=== PATIENT | female | born 1985 | race Caucasian/White ===

== ENCOUNTER 2016-08-31 14:01 | Inpatient (IN) | payer MEDICAID ==
[~2016-08-31] VITALS: Ht 152.4 cm; Wt 55.8 kg
[2016-08-31] MEDS ORDERED: CEFTRIAXONE 1 GM/50 ML (PMX) 50 ML IVPB STA (15:36)
[2016-08-31] MEDS ORDERED: SOD CHLORIDE 0.9% 500 ML IV STA (15:36)
[2016-08-31] MEDS ORDERED: morphine 4 MG/ML VIAL IV STA (15:36)
[2016-08-31] MEDS ORDERED: ONDANSETRON 4 MG INJ IV STA (15:36)
[2016-08-31 15:58] LABS: ADD SCAN DIFF NO
[2016-08-31 16:02] LABS: BASOPHILS % 0.1 % (0.0-2.0); EOSINOPHILS % 0.3 % (0.0-7.0); HEMATOCRIT 35.5 % (37.0-47.0); HEMOGLOBIN 11.6 g/dl (12.0-16.0); LYMPHOCYTES # 0.8 10^3/ul (0.8-2.9); LYMPHOCYTES % 10.5 % (15.0-51.0); MEAN CORPUSCULAR HEMOGLOBIN 27.7 pg (29.0-33.0); MEAN CORPUSCULAR HGB CONC 32.7 g/dl (32.0-37.0); MEAN CORPUSCULAR VOLUME 84.7 fl (82.0-101.0); MEAN PLATELET VOLUME 10.2 fl (7.4-10.4); MONOCYTE # 0.8 10^3/ul (0.3-0.9); MONOCYTES % 9.4 % (0.0-11.0); NEUTROPHIL # 6.4 10^3/ul (1.6-7.5); NEUTROPHILS % 79.3 % (39.0-77.0); PLATELET COUNT 194 10^3/UL (140-415); RED BLOOD COUNT 4.19 10^6/ul (4.20-5.40); RED CELL DISTRIBUTION WIDTH 13.8 % (11.5-14.5)
[2016-08-31 16:10] LABS: ADD UMIC YES; URINE BILIRUBIN (Dip) NEGATIVE (NEGATIVE); URINE BLOOD (Dip) 1+ (NEGATIVE); URINE COLOR LT. YELLOW (YELLOW); URINE GLUCOSE (Dip) NEGATIVE (NEGATIVE); URINE KETONES (Dip) NEGATIVE (NEGATIVE); URINE LEUKOCYTE ESTERASE (Dip) 1+ (NEGATIVE); URINE NITRITE (Dip) POSITIVE (NEGATIVE); URINE TOTAL PROTEIN (Dip) TRACE (NEGATIVE); URINE UROBILINOGEN (Dip) 1.0 E.U./dL (0.1-1.0)
[2016-08-31 16:20] LABS: ALBUMIN 4.3 g/dl (3.3-4.9); POTASSIUM 4.1 mmol/L (3.5-5.1)
[2016-08-31 16:22] LABS: ALBUMIN/GLOBULIN RATIO 1.13; BILIRUBIN,INDIRECT 0.4 mg/dl (0-1.1); BILIRUBIN,TOTAL 0.4 mg/dl (0.2-1.3); CREATININE 0.56 mg/dl (0.44-1.00); TOTAL PROTEIN 8.1 g/dl (6.1-8.1)
[2016-08-31 16:23] LABS: CALCIUM 9.1 mg/dl (8.4-10.2)
[2016-08-31 16:32] LABS: BACTERIA,URINE MANY; SQUAMOUS EPITHELIAL CELL,UR FEW
[2016-08-31] MEDS ORDERED: IOHEXOL 300MG/ML 150 ML BTL ONE (16:37)
[2016-08-31] MEDS ORDERED: SOD CHLORIDE 0.9% 100 ML ONE (16:37)
--- NOTE | 2016-08-31 17:13 | RADRPT ---
PROCEDURE: CT Abdomen and Pelvis with contrast. CLINICAL INDICATION: Abdominal pain TECHNIQUE: CT scan of the abdomen and pelvis with contrast was performed . The patient was scanne d following the uncomplicated intravenous administration of 100 cc of Omnipaque 300. Coronal and sa gittal reformatted images were obtained from the axial source images. Images were reviewed on a high -resolution PACS workstation. images. The calculated radiation dose measures 309.69 mGy centimeters. The CTDI measures 6.01 mGy. One or more of the following dose reduction techniques were used: - Automated exposure control. - Adjustment of the mA and/or kV according to patient size . - Use of iterative reconstruction technique. Images were reviewed on a high-resolution PACS workstation COMPARISON: None. FINDINGS: CT abdomen: The lung bases are clear. The heart size is normal, without pericardial thickening or effusion. Th e liver demonstrates decreased density without focal mass or intrahepatic biliary dilatation. A sma ll splenic cyst is seen at the anterior aspect, benign in appearance. The spleen is otherwise normal in size and homogeneous in density. The stomach is partially collapsed, but is grossly unremarkabl e. The pancreas as visualized is normal. The gallbladder and biliary tree are unremarkable and the re is no evidence for biliary dilatation. The adrenal glands are symmetric and normal. There is an asymmetric nephrogram with inhomogeneous enhancement at the left kidney and a focal area of nonenha ncement at the lower pole of the kidney suspicious for pyelonephritis. There is also enhancement of the left ureter as well as perinephric stranding. There is a 2.6 mm right lower pole renal calculu s. The aorta is of normal caliber. There is no retroperitoneal lymphadenopathy. The viet hepatis re gion is clear. The bowel and mesentery, as visualized, are equally unremarkable. There is a calcifi ed granuloma in the right perinephric region. CT pelvis: The small bowel loops situated within the pelvis are unremarkable. The pelvic organs are normal. T he pelvic sidewalls and inguinal regions are clear. The sigmoid colon and rectum are not thickened or dilated. The appendix is visualized, there are no secondary findings acute appendicitis.. The b ladder is mildly decompressed. The surrounding osseous structures are tact. No osteolytic or osteoblastic lesion is detected. IMPRESSION: 1. The findings are most consistent with a left of pyelonephritis a small focal area of nonenhanceme nt at the left lower pole of the kidney and could represent a developing collection. Short-term foll ow-up imaging is recommended during treatment to exclude abscess formation. 2. Suggestion of fatty liver. 3. 2.6 mm right lower pole renal calculus. No evidence for left nephroureterolithiasis, although ev aluation is slightly limited without IV. 4. No evidence for small bowel obstruction. RPTAT: UU .Hector Black MD, MD Date Time Electronically viewed and signed by .Hector Black MD, MD on 08/31/2016 17:13 .d/
[2016-08-31] MEDS ORDERED: SOD CHLORIDE 0.9% 1,000 ML IV SCH (17:45)
--- NOTE | 2016-08-31 17:49 | ERD ---
ER Documentation Chief Complaint Date/Time DATE: 08/31/16 TIME: 17:46 Chief Complaint ABD PAIN X 4 DAYS HPI This is a 30-year-old female complains of 3 days of dysuria and developed a fever yesterday at home with chills and she is complaining of left mid abdominal pain. Is a mild dull headache nausea no vomiting or diarrhea no back pain no vaginal discharge or bleeding. Pain is described as constant dull nothing makes it worse or better no radiation ROS All systems reviewed and are negative except as per history of present illness. Medications Home Meds No Active Prescriptions or Reported Meds Allergies Allergies: Coded Allergies: No Known Drug Allergies (Verified Allergy, Unknown, 06/13/14) PMhx/Soc Medical and Surgical Hx: pt denies Medical Hx, pt denies Surgical Hx History of Surgery: No Anesthesia Reaction: No Hx Neurological Disorder: No Hx Respiratory Disorders: No Hx Cardiac Disorders: No Hx Psychiatric Problems: No Hx Miscellaneous Medical Probl: No Hx Alcohol Use: No Hx Substance Use: No Hx Tobacco Use: No FmHx Family History: No coronary disease Physical Exam Vitals Vital Signs Date Time Temp Pulse Resp B/P Pulse Ox O2 Delivery O2 Flow Rate FiO2 08/31/16 14:05 102.4 120 18 116/60 99 Physical Exam Const: Well-developed, well-nourished Head: Atraumatic, normocephalic Eyes: Normal Conjunctiva, PERRLA, EOMI, normal sclera, no nystagmus ENT: Normal External Ears, Nose and Mouth, moist mucus membranes. Neck: Full range of motion. No meningismus, no lymphadenopathy. Resp: Clear to auscultation bilaterally, no wheezing, rhonchi, rales Cardio: Tachycardia m, no murmurs, S1 S2 present Abd: Soft, mild abdominal left-sided tenderness over the kidney, non distended. Normal bowel sounds, no guarding or rebound, no pulsitile abdominal masses or bruits Skin: No petechiae or rashes, no ecchymosis , no maculopapular rash Back: No midline or flank tenderness Ext: No cyanosis, or edema, FROM x 4, normal inspection, neurovascularly intact x 4 Neur: Awake and alert, STR 5/5 x 4, sensation intact x 4, no focal findings, cerebellum intact Psych: Normal Mood and Affect Result Diagram: 08/31/16 1545 08/31/16 1545 Results 24 hrs Laboratory Tests Test 08/31/16 15:45 08/31/16 15:55 White Blood Count 8.010^3/ul Red Blood Count 4.1910^6/ul Hemoglobin 11.6g/dl Hematocrit 35.5% Mean Corpuscular Volume 84.7fl Mean Corpuscular Hemoglobin 27.7pg Mean Corpuscular Hemoglobin Concent 32.7g/dl Red Cell Distribution Width 13.8% Platelet Count 64009^3/UL Mean Platelet Volume 10.2fl Neutrophils % 79.3% Lymphocytes % 10.5% Monocytes % 9.4% Eosinophils % 0.3% Basophils % 0.1% Nucleated Red Blood Cells % 0.0/100WBC Neutrophils # 6.410^3/ul Lymphocytes # 0.810^3/ul Monocytes # 0.810^3/ul Eosinophils # 0.010^3/ul Basophils # 0.010^3/ul Nucleated Red Blood Cells # 0.010^3/ul Sodium Level 137mmol/L Potassium Level 4.1mmol/L Chloride Level 100mmol/L Carbon Dioxide Level 23mmol/L Anion Gap 18 Blood Urea Nitrogen 11mg/dl Creatinine 0.56mg/dl Glucose Level 111mg/dl Calcium Level 9.1mg/dl Total Bilirubin 0.4mg/dl Direct Bilirubin 0.00mg/dl Indirect Bilirubin 0.4mg/dl Aspartate Amino Transf (AST/SGOT) 22IU/L Alanine Aminotransferase (ALT/SGPT) 24IU/L Alkaline Phosphatase 80IU/L Total Protein 8.1g/dl Albumin 4.3g/dl Globulin 3.80g/dl Albumin/Globulin Ratio 1.13 Urine Color LT. YELLOW Urine Clarity CLOUDY Urine pH 8.0 Urine Specific [place] 1.015 Urine Ketones NEGATIVE Urine Nitrite POSITIVE Urine Bilirubin NEGATIVE Urine Urobilinogen 1.0 E.U./dL Urine Leukocyte Esterase 1+ Urine Microscopic RBC 5-10/HPF Urine Microscopic WBC >50/HPF Urine Squamous Epithelial Cells FEW Urine Bacteria MANY Urine Hemoglobin 1+ Urine Glucose NEGATIVE% Urine Total Protein TRACE Current Medications Medications (Trade) Dose Ordered Sig/Akiko Route PRN Reason Start Time Stop Time Status Last Admin Dose Admin Sodium Chloride (NS) 500 ml @ 500 mls/hr Q1H STAT IV 08/31/16 15:36 08/31/16 16:35 DC 08/31/16 15:50 Morphine Sulfate (morphine) 4 mg ONCE STAT IV 08/31/16 15:36 08/31/16 15:37 DC 08/31/16 15:54 Ondansetron HCl 4 mg 4 mg ONCE STAT IV 08/31/16 15:36 08/31/16 15:37 DC 08/31/16 15:53 Ceftriaxone Sodium (Rocephin) 50 ml @ 100 mls/hr ONCE STAT IVPB 08/31/16 15:36 08/31/16 16:05 DC 08/31/16 15:52 IV Flush 10 ml 10 ml STK-MED ONCE .ROUTE 08/31/16 16:37 08/31/16 16:38 DC 08/31/16 16:56 Sodium Chloride (NS) 100 ml @ ud STK-MED ONCE .ROUTE 08/31/16 16:37 08/31/16 16:38 DC 08/31/16 16:56 Iohexol (Omnipaque 300mg/ ml) 150 ml STK-MED ONCE .ROUTE 08/31/16 16:37 08/31/16 16:38 DC 08/31/16 16:56 Procedures/MDM PROCEDURE: CT Abdomen and Pelvis with contrast. CLINICAL INDICATION: Abdominal pain TECHNIQUE: CT scan of the abdomen and pelvis with contrast was performed . The patient was scanned following the uncomplicated intravenous administration of 100 cc of Omnipaque 300. Coronal and sagittal reformatted images were obtained from the axial source images. Images were reviewed on a high- resolution PACS workstation. images. The calculated radiation dose measures 309.69 mGy centimeters. The CTDI measures 6.01 mGy. One or more of the following dose reduction techniques were used: - Automated exposure control. - Adjustment of the mA and/or kV according to patient size . - Use of iterative reconstruction technique. Images were reviewed on a high-resolution PACS workstation COMPARISON: None. FINDINGS: CT abdomen: The lung bases are clear. The heart size is normal, without pericardial thickening or effusion. The liver demonstrates decreased density without focal mass or intrahepatic biliary dilatation. A small splenic cyst is seen at the anterior aspect, benign in appearance. The spleen is otherwise normal in size and homogeneous in density. The stomach is partially collapsed, but is grossly unremarkable. The pancreas as visualized is normal. The gallbladder and biliary tree are unremarkable and there is no evidence for biliary dilatation. The adrenal glands are symmetric and normal. There is an asymmetric nephrogram with inhomogeneous enhancement at the left kidney and a focal area of nonenhancement at the lower pole of the kidney suspicious for pyelonephritis. There is also enhancement of the left ureter as well as perinephric stranding. There is a 2.6 mm right lower pole renal calculus. The aorta is of normal caliber. There is no retroperitoneal lymphadenopathy. The viet hepatis region is clear. The bowel and mesentery, as visualized, are equally unremarkable. There is a calcified granuloma in the right perinephric region. CT pelvis: The small bowel loops situated within the pelvis are unremarkable. The pelvic organs are normal. The pelvic sidewalls and inguinal regions are clear. The sigmoid colon and rectum are not thickened or dilated. The appendix is visualized, there are no secondary findings acute appendicitis.. The bladder is mildly decompressed. The surrounding osseous structures are tact. No osteolytic or osteoblastic lesion is detected. IMPRESSION: 1. The findings are most consistent with a left of pyelonephritis a small focal area of nonenhancement at the left lower pole of the kidney and could represent a developing collection. Short-term follow-up imaging is recommended during treatment to exclude abscess formation. 2. Suggestion of fatty liver. 3. 2.6 mm right lower pole renal calculus. No evidence for left nephroureterolithiasis, although evaluation is slightly limited without IV. 4. No evidence for small bowel obstruction. RPTAT: UU .Hector Black MD, MD Date Time Electronically viewed and signed by .Hector Black MD, MD on 08/31/2016 17:13 .d/ CC: SIMÓN CRUZ DO Patient has pyelonephritis with possible early abscess formation. There is a 102.4 fever here and will admit to the hospital for IV antibiotics and probable further monitoring with renal ultrasound or CT scan. She is clinically well appearing and not septic Should IV fluids, Rocephin IV blood and urine cultures Departure Diagnosis: Primary Impression: Pyelonephritis Condition: Stable SIMÓN CRUZ DO Aug 31, 2016 17:49
[2016-08-31] MEDS ORDERED: ACETAMINOPHEN 325 MG TAB PO PRN (18:00)
[2016-08-31] MEDS ORDERED: ONDANSETRON 4 MG INJ IV PRN (18:00)
[2016-08-31 22:46] VITALS: PULSE 93; TEMP 98.4
--- NOTE | 2016-09-01 01:58 | HP ---
Date/Time of Note Date/Time of Note DATE: 09/01/16 TIME: 01:48 Assessment/Plan VTE Prophylaxis VTE Prophylaxis Intervention: SCD's Assessment/Plan Assessment/Plan 1. Sepsis as evidenced by fever and tachycardia 2/2 pyelonephritis - Abx - IVF - f/u culture results - pain mgmt 2. pyelonephritis - see above 3. Normocytic anemia - will w/u for iron deficiency 4. History of Gastritis - PPI HPI/ROS Admit Date/Time Admit Date/Time Aug 31, 2016 at 17:46 Hx of Present Illness This is a 30 yo female with hx of gastritis and retained placenta s/p suction and curettage in 2012 who presented to ER with 3 days history of fever, dysuria and left flank pain. Reported nausea, but no vomiting. no other complaints. In ER, pt was found to be febrile with a temp of 102, HR 120 and UA consistent with UTI. WBC is 8, hbb 11.6, otherwise rest of basic labs withinacceptable range. CT abd/pelvis showed The findings are most consistent with a left of pyelonephritis a small focal area of nonenhancement at the left lower pole of the kidney and could represent a developing collection. Short-term follow-up imaging is recommended during treatment to exclude abscess formation. 2.6 mm right lower pole renal calculus. No evidence for left nephroureterolithiasis. Suggestion of fatty liver. . PMH/Family/Social Past Medical History Medical History: no pertinent history Social History Alcohol Use: none Smoking Status: Never smoker Drug Use: none Exam/Review of Systems Vital Signs Vitals Vital Signs Date Time Temp Pulse Resp B/P Pulse Ox O2 Delivery O2 Flow Rate FiO2 08/31/16 22:46 98.4 93 16 114/65 99 Room Air Intake and Output 08/31/16 08/31/16 09/01/16 15:00 23:00 07:00 Intake Total 550 ml Balance 550 ml Exam Constitutional: alert, oriented, well developed Head: atraumatic, normocephalic Eyes: EOMI, PERRL Respiratory: clear to auscultation, normal air movement Cardiovascular: other (tachycardic with regular rhythm) Gastrointestinal: other (left flank tenderness. no abd ridgity or rebound tenderness), soft, tender Extremities: normal pulses Labs Result Diagram: 08/31/16 1545 08/31/16 1545 Medications Medications Current Medications Sodium Chloride (NS) 1,000 ml @ 80 mls/hr [id number] IV Last administered on 08/31t 18:37; Admin Dose 80 MLS/HR; Start 08/31/16 at 17:45; Stop 09/01/16 at 06: 14 HARRY LAWRENCE MD Sep 01, 2016 01:58
[2016-09-01] MEDS ORDERED: NACL 0.9% 3 ML SYG IV SCH (02:00)
[2016-09-01] MEDS ORDERED: ALBUTEROL/IPRATROPIUM (NEB) 3 ML AMP HHN PRN (02:00)
[2016-09-01] MEDS ORDERED: ONDANSETRON 4 MG INJ IV PRN (02:00)
[2016-09-01] MEDS ORDERED: morphine 2 MG INJ IV PRN (02:00)
[2016-09-01] MEDS: SOD CHLORIDE 0.9% 1,000 ML IV SCH ×3 (02:23→21:44)
[2016-09-01] MEDS: CEFEPIME 1GM/50 ML (PMX) 50 ML IVPB SCH ×3 (02:23→21:28)
[2016-09-01 02:30] VITALS: BP 112/61; RESP 18
[2016-09-01 05:35] LABS: ADD SCAN DIFF NO
[2016-09-01 05:55] LABS: ALBUMIN 3.5 g/dl (3.3-4.9)
[2016-09-01 05:56] LABS: POTASSIUM 3.8 mmol/L (3.5-5.1)
[2016-09-01 05:58] LABS: ALBUMIN/GLOBULIN RATIO 1.02; BASOPHILS % 0.1 % (0.0-2.0); BILIRUBIN,INDIRECT 0.5 mg/dl (0-1.1); BILIRUBIN,TOTAL 0.5 mg/dl (0.2-1.3); CREATININE 0.56 mg/dl (0.44-1.00); EOSINOPHILS % 0.5 % (0.0-7.0); HEMATOCRIT 31.5 % (37.0-47.0); HEMOGLOBIN 10.2 g/dl (12.0-16.0); MEAN CORPUSCULAR HEMOGLOBIN 27.5 pg (29.0-33.0); MEAN CORPUSCULAR HGB CONC 32.4 g/dl (32.0-37.0); MEAN CORPUSCULAR VOLUME 84.9 fl (82.0-101.0); MEAN PLATELET VOLUME 10.5 fl (7.4-10.4); MONOCYTE # 1.2 10^3/ul (0.3-0.9); MONOCYTES % 14.5 % (0.0-11.0); NEUTROPHIL # 6.1 10^3/ul (1.6-7.5); NEUTROPHILS % 72.7 % (39.0-77.0); PLATELET COUNT 195 10^3/UL (140-415); RED BLOOD COUNT 3.71 10^6/ul (4.20-5.40); RED CELL DISTRIBUTION WIDTH 13.8 % (11.5-14.5); TOTAL PROTEIN 6.9 g/dl (6.1-8.1); WHITE BLOOD COUNT 8.4 10^3/ul (4.8-10.8)
[2016-09-01 05:59] LABS: CALCIUM 8.4 mg/dl (8.4-10.2); MAGNESIUM 1.9 mg/dl (1.7-2.5); PHOSPHORUS 3.5 mg/dl (2.5-4.9)
[2016-09-01 06:16] LABS: TOTAL IRON BINDING CAPACITY 287 ug/dl (241-421)
[2016-09-01 06:55] LABS: IRON < 10 ug/dl (35-150)
[2016-09-01 07:14] LABS: FERRITIN 63.6 ng/ml (6.2-137.0)
[2016-09-01] MEDS: ACETAMINOPHEN 325 MG TAB PO PRN ×2 (08:10→16:13)
[2016-09-01 08:44] VITALS: BP 106/55; RESP 17
--- NOTE | 2016-09-01 10:58 | PN ---
Date/Time of Note Date/Time of Note DATE: 09/01/16 TIME: 10:56 Assessment/Plan VTE Prophylaxis VTE Prophylaxis Intervention: other Lines/Catheters IV Catheter Type (from Nrs): Peripheral IV Assessment/Plan Problems: (1) Iron deficiency anemia Status: Chronic Comment: This is most likely on the basis of menstrual loss as well as pregnancies. Go ahead and give her IV iron while she is here. Will be done for being expeditious. At discharge she can be on oral iron therapy Qualifiers: Iron deficiency anemia type: unspecified iron deficiency Qualified Code: D50.9 - Iron deficiency anemia, unspecified iron deficiency anemia type (2) Pyelonephritis Status: Acute Comment: Culture is still pending at this time. She is on antibiotics and improving. Please note I do not find evidence of the urine test in the chart I have gone ahead and ordered Subjective 24 Hr Interval Summary Free Text/Dictation Patient reports with IV fluids and antibiotics she is already feeling a little bit better. Denies any specific nausea or vomiting. Constitutional: improved Respiratory: no complaints Cardiovascular: no complaints Gastrointestinal: no complaints Genitourinary: dysuria Exam/Review of Systems Vital Signs Vitals Vital Signs Date Time Temp Pulse Resp B/P Pulse Ox O2 Delivery O2 Flow Rate FiO2 09/01/16 09:51 98.7 09/01/16 08:44 88 17 106/55 99 08/31/16 22:46 Room Air Intake and Output 08/31/16 08/31/16 09/01/16 14:59 22:59 06:59 Intake Total 550 ml 200 ml Balance 550 ml 200 ml Exam Constitutional: alert Neck: non-tender, supple Respiratory: clear to auscultation Cardiovascular: nl pulses, regular rate and rhythm Gastrointestinal: nl liver, spleen, other (Left CVA tenderness), soft Results Result Diagram: 09/01/16 0430 09/01/16 0430 Results 24 hrs Laboratory Tests Test 08/31/16 15:45 08/31/16 15:55 09/01/16 04:30 White Blood Count 8.0 8.4 Red Blood Count 4.19 L 3.71 L Hemoglobin 11.6 L 10.2 L Hematocrit 35.5 L 31.5 L Mean Corpuscular Volume 84.7 84.9 Mean Corpuscular Hemoglobin 27.7 L 27.5 L Mean Corpuscular Hemoglobin Concent 32.7 32.4 Red Cell Distribution Width 13.8 13.8 Platelet Count 194 195 Mean Platelet Volume 10.2 10.5 H Neutrophils % 79.3 H 72.7 Lymphocytes % 10.5 L 12.0 L Monocytes % 9.4 14.5 H Eosinophils % 0.3 0.5 Basophils % 0.1 0.1 Nucleated Red Blood Cells % 0.0 0.0 Neutrophils # 6.4 6.1 Lymphocytes # 0.8 1.0 Monocytes # 0.8 1.2 H Eosinophils # 0.0 0.0 Basophils # 0.0 0.0 Nucleated Red Blood Cells # 0.0 0.0 Sodium Level 137 139 Potassium Level 4.1 3.8 Chloride Level 100 104 Carbon Dioxide Level 23 23 Anion Gap 18 H 16 Blood Urea Nitrogen 11 8 Creatinine 0.56 0.56 Glucose Level 111 111 Calcium Level 9.1 8.4 Total Bilirubin 0.4 0.5 Direct Bilirubin 0.00 0.00 Indirect Bilirubin 0.4 0.5 Aspartate Amino Transf (AST/SGOT) 22 26 Alanine Aminotransferase (ALT/SGPT) 24 31 Alkaline Phosphatase 80 72 Total Protein 8.1 6.9 # Albumin 4.3 3.5 Globulin 3.80 H 3.40 H Albumin/Globulin Ratio 1.13 1.02 Urine Color LT. YELLOW Urine Clarity CLOUDY Urine pH 8.0 Urine Specific [place] 1.015 Urine Ketones NEGATIVE Urine Nitrite POSITIVE H Urine Bilirubin NEGATIVE Urine Urobilinogen 1.0 E.U./dL Urine Leukocyte Esterase 1+ H Urine Microscopic RBC 5-10 Urine Microscopic WBC >50 Urine Squamous Epithelial Cells FEW Urine Bacteria MANY Urine Hemoglobin 1+ H Urine Glucose NEGATIVE Urine Total Protein TRACE Phosphorus Level 3.5 Magnesium Level 1.9 Iron Level < 10 L Total Iron Binding Capacity 287 Percent Iron Saturation Ferritin 63.6 Medications Medications Current Medications Sodium Chloride (NS) 1,000 ml @ 100 mls/hr Q10H IV Last administered on t 02:23; Admin Dose 100 MLS/HR; Start 09/01/16 at 01:44; Stop 09/01/16 at 23: 00 Ondansetron HCl (Zofran Inj) 4 mg Q6H PRN IV NAUSEA AND/OR VOMITING; Start at 02:00 Acetaminophen (Tylenol Tab) 650 mg Q6H PRN PO PAIN LEVEL 1-3 OR FEVER Last administered on 09/01/16 08:10; Admin Dose 650 MG; Start 09/01/16 at 02:00 Morphine Sulfate 2 mg 2 mg Q4H PRN IV SEVERE PAIN LEVEL 7-10 Last administered on 09/01/16 03:47; Admin Dose 2 MG; Start 09/01/16 at 02:00 Cefepime HCl 50 ml @ 100 mls/hr Q12 IVPB Last administered on 09/01/16 08:09 ; Admin Dose 100 MLS/HR; Start 09/01/16 at 02:00 Ferric Sodium Gluconate Complex/ Sodium Chloride (Ferrlecit/NS) 110 ml @ 100 mls/hr Q24H IVPB ; Start 09/01/16 at 11:00; Stop 09/03/16 at 12:05 VLADIMIR MCKEON MD Sep 01, 2016 10:58
[2016-09-01] MEDS: SOD FERRIC GLUC COMPLX 125 MG in SOD CHLORIDE 0.9% 100 ML IVPB SCH (12:29)
[2016-09-01 20:55] VITALS: BP 106/65; RESP 20
[2016-09-02] MEDS: ACETAMINOPHEN 325 MG TAB PO PRN ×2 (01:51→16:08)
[2016-09-02 05:27] LABS: ADD SCAN DIFF NO
[2016-09-02 05:38] LABS: BASOPHILS % 0.3 % (0.0-2.0); EOSINOPHILS # 0.1 10^3/ul (0.0-0.5); EOSINOPHILS % 0.7 % (0.0-7.0); HEMATOCRIT 31.1 % (37.0-47.0); HEMOGLOBIN 10.1 g/dl (12.0-16.0); LYMPHOCYTES # 1.2 10^3/ul (0.8-2.9); LYMPHOCYTES % 15.2 % (15.0-51.0); MEAN CORPUSCULAR HEMOGLOBIN 27.7 pg (29.0-33.0); MEAN CORPUSCULAR HGB CONC 32.5 g/dl (32.0-37.0); MEAN CORPUSCULAR VOLUME 85.2 fl (82.0-101.0); MEAN PLATELET VOLUME 10.4 fl (7.4-10.4); MONOCYTE # 0.9 10^3/ul (0.3-0.9); MONOCYTES % 12.2 % (0.0-11.0); NEUTROPHIL # 5.4 10^3/ul (1.6-7.5); NEUTROPHILS % 71.3 % (39.0-77.0); PLATELET COUNT 206 10^3/UL (140-415); RED BLOOD COUNT 3.65 10^6/ul (4.20-5.40); RED CELL DISTRIBUTION WIDTH 13.6 % (11.5-14.5); WHITE BLOOD COUNT 7.6 10^3/ul (4.8-10.8)
[2016-09-02 05:50] LABS: POTASSIUM 4.1 mmol/L (3.5-5.1)
[2016-09-02 05:52] LABS: CREATININE 0.59 mg/dl (0.44-1.00)
[2016-09-02 05:53] LABS: CALCIUM 8.6 mg/dl (8.4-10.2); PHOSPHORUS 3.5 mg/dl (2.5-4.9)
[2016-09-02 08:05] VITALS: BP 94/55; RESP 16
[2016-09-02] MEDS: CEFEPIME 1GM/50 ML (PMX) 50 ML IVPB SCH ×2 (08:42→20:48)
[2016-09-02] MEDS: SOD FERRIC GLUC COMPLX 125 MG in SOD CHLORIDE 0.9% 100 ML IVPB SCH (10:15)
--- NOTE | 2016-09-02 19:11 | PN ---
DATE: 09/02/2016 SUBJECTIVE: Chart reviewed. Yesterday urine test was done which is reportedly negative. The patient remains on IV antibiotics. PHYSICAL EXAMINATION: VITAL SIGNS: Blood pressure 94/55, pulse 72, respirations 16, temperature 97.9. Currently saturati ng 100%. HEENT: Pupils are equal and reactive to light. NECK: Supple, no JVD noted, no cervical adenopathy, no carotid bruits heard. LUNGS: Fair breath sounds bilaterally. CARDIOVASCULAR: S1, S2 normal. ABDOMEN: Soft, nontender. No organomegaly or masses noted. EXTREMITIES: No clubbing, cyanosis, or edema noted. NEUROLOGICAL: Awake and alert. LABORATORY DATA: Sodium 139, potassium 4.1, chloride 107, CO2 of 25, BUN 10, creatinine 0.59, gluco se 113. WBC 7.6, hemoglobin 10.1, hematocrit 31.1, platelets 206. Blood cultures negative. Urine culture shows E. coli. IMPRESSION: 1. Acute pyelonephritis. 2. Iron deficiency anemia. RECOMMENDATIONS: 1. Continue current antibiotics. 2. The patient likely may be discharged to home tomorrow with oral antibiotics. Dictated By: MARIKA CAGLE MD, MA/ODETTE Conf#: [id number] DID#: [id number]
[2016-09-02 19:45] VITALS: BP 110/67; RESP 20
[2016-09-03] MEDS: ACETAMINOPHEN 325 MG TAB PO PRN (07:25)
[2016-09-03 07:59] VITALS: BP 107/65; RESP 18
[2016-09-03] MEDS: CEFEPIME 1GM/50 ML (PMX) 50 ML IVPB SCH (09:36)
[2016-09-03] MEDS: SOD FERRIC GLUC COMPLX 125 MG in SOD CHLORIDE 0.9% 100 ML IVPB SCH (11:21)
[2016-09-03] MEDS ORDERED: LEVO250T35 PO (15:48)
--- NOTE | 2016-09-03 15:51 | DS ---
Date/Time of Note Date/Time of Note DATE: 09/03/16 TIME: 15:49 Discharge Summary Admission/Discharge Info Admit Date/Time Aug 31, 2016 at 17:46 Discharge Date/Time Final Diagnosis 1. Urinary tract infection, stable, levaquin 2. Mild normocytic anemia, follow up with PCP Hx of Present Illness This is a 30 yo female with hx of gastritis and retained placenta s/p suction and curettage in 2012 who presented to ER with 3 days history of fever, dysuria and left flank pain. Reported nausea, but no vomiting. no other complaints. In ER, pt was found to be febrile with a temp of 102, HR 120 and UA consistent with UTI. WBC is 8, hbb 11.6, otherwise rest of basic labs withinacceptable range. CT abd/pelvis showed The findings are most consistent with a left of pyelonephritis a small focal area of nonenhancement at the left lower pole of the kidney and could represent a developing collection. Short-term follow-up imaging is recommended during treatment to exclude abscess formation. 2.6 mm right lower pole renal calculus. No evidence for left nephroureterolithiasis. Suggestion of fatty liver. . Hospital Course Urine WBC >50. Urine culture positive with E. Coli. She has been on antibiotics that improves her symptoms. She will be taking levaquin and follow up with PCP outpatient. Home Meds Active Scripts Levofloxacin* (Levaquin*) 250 Mg Tablet, 250 MG PO DAILY for 7 Days, TAB Prov:AZAR GUERRERO MD 09/03/16 Follow-up Plan PCP one week\ AZAR GUERRERO MD September 03, 2016 15:51
== END 2016-09-03 17:47 | disposition home or self-care (01) | DRG 690 ==
LOC: FTE 14:01 → PP2 17:46
PROVIDERS: ADMIT Internal Medicine; ATTEND Internal Medicine
DX: N10 Acute pyelonephritis (principal); B96.20 Unspecified Escherichia coli [E. coli] as the cause of diseases classified elsewhere; D50.9 Iron deficiency anemia, unspecified; K29.70 Gastritis, unspecified, without bleeding
CPT/HCPCS: 36415; 74177; 80048; 80053; 81001; 81003; 82728; 83540; 83735; 84100; 84703; 85025; 87040; 87086; 96365; 96375; J0692; J0696; J2270; J2405; J2916; J7030; J7040; Q9967